=== PATIENT | male | born 1940 | race Caucasian/White ===

== ENCOUNTER 2016-09-02 15:32 | Inpatient (IN) | payer MEDICARE ==
[2016-09-02] VITALS (242 sets, daily range): BP systolic 120–181; BP diastolic 65–86; PULSE 79–80; TEMP 98.1; O2SAT 92–99
[~2016-09-02] VITALS: Ht 162.6 cm; Wt 79.6 kg
[~2016-09-02 15:32] MED LIST: ACCUPRIL10 MG PO; ACCUPRIL40 MG PO; ALDACTONE 25MG25 M1 PO; AMLOPIDINE PO; ASPI325T6 PO; ASPIRIN 81M81 MG/TA2 PO; ASPIRIN E.C. 8181 MG PO; CATAPRES 0.1MG0.1 MG PO; CENTRUM SILVER1 CTB PO; CENTRUM SILVER1 TA1 PO; CHROMIUM PICO200 MC1 PO; CINNAMON500 MG PO; COMBIRESP; CORAL CALCIUM 51 CAP PO; COREG 25MG25 MG/TAB PO; COREG12.5 MG PO; Cinnamon Bark PO; DEMADEX 20MG20 M1 PO; DIOVAN 160MG160 MG PO; DIOVAN80 M1 PO; EXFORGE HCT 101 TAB PO; FISH OIL1 IU PO; FLEXERIL 1010 MG/TAB PO; FLOMAX 0.40.4 MG/CAP PO; GLYBURIDE5 MG PO; GLYNASE 3MG3 MG/TAB PO; HYDROCHLOR50 MG PO; INSLANT SC; LANTUS100 U/ML; LANTUS100 U/ML SC; LORTAB 5/500 501 TAB; METOPROLOL SUCC25 MG PO; METOPROLOL25 MG PO; NITROSTAT0.4 MG/TAB SL; NOVLOG SC; NOVOLIN N100 U/ML SQ; NOVOLIN R100 U/ML SQ; NOVOLOG 100U100 U/ML SQ; NOVOLOG FLEX100 U/ML IV; OMEGA 31000 MG PO; OMEPRAZOLE20 MG PO; OSCAL 500MG/VI500 MG PO; PERCOCET 325 MG1 TA2 PO; PERCOCET 5/321 UDTAB PO; PLAQUENIL 200M200 MG PO; PRAVACHOL 20MG20 MG PO; PRAVACHOL 40MG40 MG PO; PREDNISONE1 MG PO; PREDNISONE20 MG PO; PRILOSEC 20MG20 MG PO; PRINIVIL20 MG PO; PROTANDIM; QUINAPRIL40 MG PO; SODIUM BICARB PO; TRAVATAN 2.5 M2.5 M1 OU; TRAVATAN Z 5 ML5 ML OU; TYLENOL 325MG325 MG PO; TYLENOL 500MG500 MG PO; TYLENOL ARTHRI650 M1 PO; TYLENOL PM EXTR1 TA1 PO; ULTRAM 50MG TAB50 MG PO; VIT C; VIT E; VITAMIN; VITAMIN C500 MG PO; VITAMIN E ACET100 ML; VITAMIN E200 I1 PO; XALATAN EYE DROPS OU; ZOCOR 80MG80 MG PO; ZOCOR80 MG PO; ZYLOPRIM 300MG300 MG PO; [UNRECOGNIZED DRUG - OTHER] PO
[2016-09-02 16:21] LABS: BASO # 0.1 (0.0-0.2); BASO % 1.1 % (0.0-2.0); EOS # 0.2 (0.0-0.7); EOS % 2.4 % (0-4.0); GRAN # 5.7 (1.4-6.5); GRAN % 65.4 % (42.2-75.2); HEMATOCRIT 39.5 % (42.0-52.0); HEMOGLOBIN 13.3 g/dl (13.5-18.0); LYMPH % 23.4 % (20.0-51.0); MEAN CELL VOLUME 88 fl (80.0-100.0); MEAN CORPUSCULAR HEMOGLOBIN 30 pg (27.0-31.0); MEAN CORPUSCULAR HGB CONC 34 g/dl (33.0-37.0); MEAN PLATELET VOLUME 9.8 fl (7.4-10.4); MONO # 0.6 (0.1-0.6); MONO % 7.2 % (1.7-9.3); PLATELET COUNT 261 K/mm3 (130-400); RED BLOOD COUNT 4.47 M/mm3 (4.20-5.60); REDCELL DISTRIBUTION WIDTH-CV 14.4 % (11.5-14.5); WHITE BLOOD COUNT 8.7 K/mm3 (4.8-10.8)
[2016-09-02 16:23] LABS: PROTHROMBIN TIME 11.5 SECONDS (9.7-12.8)
[2016-09-02 16:25] LABS: PARTIAL THROMBOPLASTIN TIME 27.6 SECONDS (26.0-37.0)
[2016-09-02 16:34] LABS: BILIRUBIN,TOTAL 0.7 mg/dL (0.0-1.0); CREATININE, serum 2.71 mg/dL (0.66-1.25); PHOSPHOROUS 2.9 mg/dL (2.5-4.5); POTASSIUM 3.5 mmol/L (3.4-5.0); TOTAL PROTEIN 7.6 gm/dL (6.4-8.2)
[2016-09-02 17:01] LABS: TROPONIN-I 0.086 ng/mL (0.000-0.034)
[2016-09-02 18:54] LABS: HYALINE CAST >12 /lpf; PH 5 (5-8); SQUAMOUS EPITHELIAL 0-2 /hpf; URINE APPEARANCE Clear; URINE BACTERIA Rare /hpf; URINE BILIRUBIN Negative (NEGATIVE); URINE BLOOD Negative (NEGATIVE); URINE COLOR Yellow; URINE GLUCOSE 1+ (NEGATIVE); URINE KETONE Negative (NEGATIVE); URINE RBC 0-2 /hpf; URINE UROBILINOGEN Negative (NEGATIVE); URINE WBC 0-2 /hpf
[2016-09-03] VITALS (873 sets, daily range): BP systolic 160–175; BP diastolic 64–100; PULSE 74–88; TEMP 89.1–98.7; O2SAT 76–100
[2016-09-03 05:40] LABS: BASO # 0.1 (0.0-0.2); BASO % 1.3 % (0.0-2.0); EOS # 0.2 (0.0-0.7); EOS % 2.9 % (0-4.0); GRAN # 4.2 (1.4-6.5); GRAN % 57.7 % (42.2-75.2); HEMATOCRIT 38.7 % (42.0-52.0); HEMOGLOBIN 13.2 g/dl (13.5-18.0); LYMPH # 2.2 (1.2-3.4); MEAN CELL VOLUME 87 fl (80.0-100.0); MEAN CORPUSCULAR HEMOGLOBIN 30 pg (27.0-31.0); MEAN CORPUSCULAR HGB CONC 34 g/dl (33.0-37.0); MEAN PLATELET VOLUME 9.5 fl (7.4-10.4); MONO # 0.6 (0.1-0.6); MONO % 7.8 % (1.7-9.3); PLATELET COUNT 229 K/mm3 (130-400); RED BLOOD COUNT 4.46 M/mm3 (4.20-5.60); REDCELL DISTRIBUTION WIDTH-CV 14.4 % (11.5-14.5); WHITE BLOOD COUNT 7.2 K/mm3 (4.8-10.8)
[2016-09-03 05:51] LABS: CALCIUM 9.8 mg/dL (8.4-10.2); CREATININE, serum 2.59 mg/dL (0.66-1.25); POTASSIUM 3.2 mmol/L (3.4-5.0)
[2016-09-04] VITALS (9 sets, daily range): BP systolic 101–202; BP diastolic 48–86; PULSE 83–100; TEMP 97.6–97.9
[2016-09-04] MEDS ORDERED: APRESOLINE 25MG25 MG PO (15:51)
[2016-09-04] MEDS ORDERED: ASPIRIN E.C. 8181 MG PO (15:52)
== END 2016-09-04 17:30 | disposition home or self-care (01) | DRG 69 ==
LOC: COL.ER 15:32 → ICU 17:57 → IMCU 09-03 09:27 → ICU 09-03 09:27 → MEDICAL 09-03 20:11
PROVIDERS: Emergency Medicine; Internal Medicine
DX: G45.9 Transient cerebral ischemic attack, unspecified (principal); I21.4 Non-ST elevation (NSTEMI) myocardial infarction; G81.91 Hemiplegia, unspecified affecting right dominant side; Z66 Do not resuscitate; I12.9 Hypertensive chronic kidney disease with stage 1 through stage 4 chronic kidney disease, or unspecified chronic kidney disease; E11.22 Type 2 diabetes mellitus with diabetic chronic kidney disease; E11.65 Type 2 diabetes mellitus with hyperglycemia; N18.9 Chronic kidney disease, unspecified; I25.10 Atherosclerotic heart disease of native coronary artery without angina pectoris; Z95.1 Presence of aortocoronary bypass graft; Z79.4 Long term (current) use of insulin; Z87.891 Personal history of nicotine dependence; E11.42 Type 2 diabetes mellitus with diabetic polyneuropathy; I08.0 Rheumatic disorders of both mitral and aortic valves
CPT/HCPCS: 99222-AI; 99233-AI; 99239; A9502; J0360; J1815; J2785

== ENCOUNTER 2016-12-31 15:32 | Inpatient (IN) | payer MEDICARE ==
[~2016-12-31] VITALS: Ht 162.6 cm; Wt 82.0 kg
[~2016-12-31 15:32] MED LIST changes: +APRESOLINE 25MG25 MG PO
[2016-12-31 16:00] LABS: INR 1.1 (0.8-3.0); PROTHROMBIN TIME 12.3 SECONDS (9.7-12.8)
[2016-12-31 16:01] LABS: BASO # 0.1 (0.0-0.2); BASO % 1.1 % (0.0-2.0); EOS # 0.2 (0.0-0.7); GRAN # 5.9 (1.4-6.5); GRAN % 70.1 % (42.2-75.2); HEMATOCRIT 38.6 % (42.0-52.0); LYMPH # 1.6 (1.2-3.4); LYMPH % 19.5 % (20.0-51.0); MEAN CELL VOLUME 86 fl (80.0-100.0); MEAN CORPUSCULAR HEMOGLOBIN 29 pg (27.0-31.0); MEAN CORPUSCULAR HGB CONC 34 g/dl (33.0-37.0); MEAN PLATELET VOLUME 10.1 fl (7.4-10.4); MONO # 0.6 (0.1-0.6); MONO % 6.9 % (1.7-9.3); PLATELET COUNT 291 K/mm3 (130-400); RED BLOOD COUNT 4.49 M/mm3 (4.20-5.60); REDCELL DISTRIBUTION WIDTH-CV 13.5 % (11.5-14.5); WHITE BLOOD COUNT 8.4 K/mm3 (4.8-10.8)
[2016-12-31 16:09] LABS: ADJUSTED CALCIUM 9.2 mg/dL (8.4-10.2); ALBUMIN 4.3 gm/dL (3.5-5.0); BILIRUBIN,TOTAL 0.8 mg/dL (0.0-1.0); CALCIUM 9.4 mg/dL (8.4-10.2); CREATININE, serum 3.57 mg/dL (0.66-1.25); POTASSIUM 3.7 mmol/L (3.4-5.0); TOTAL PROTEIN 7.5 gm/dL (6.4-8.2)
[2016-12-31 16:20] LABS: TROPONIN-I 0.025 ng/mL (0.000-0.034)
[2016-12-31] MEDS ORDERED: TYLENOL 325MG325 MG PO (17:04)
[2016-12-31] MEDS ORDERED: CELEXA10 MG PO (17:11)
[2016-12-31 20:07] VITALS: BP 170/67; PULSE 69; TEMP 98.2
[2016-12-31 20:21] VITALS: BP 170/67; PULSE 69; TEMP 98.2
[2016-12-31 20:22] VITALS: BP 167/79; BP 191/61
[2016-12-31 21:06] LABS: PH 5 (5-8); SQUAMOUS EPITHELIAL 0-2 /hpf; URINE APPEARANCE Clear; URINE BACTERIA None Seen /hpf; URINE BILIRUBIN Negative (NEGATIVE); URINE BLOOD Negative (NEGATIVE); URINE COLOR Straw; URINE GLUCOSE 2+ (NEGATIVE); URINE KETONE Negative (NEGATIVE); URINE RBC 0-2 /hpf; URINE UROBILINOGEN Negative (NEGATIVE); URINE WBC 0-2 /hpf
[2016-12-31 23:50] VITALS: BP 134/53; PULSE 65; TEMP 98.1
[2017-01-01] VITALS (10 sets, daily range): BP systolic 117–183; BP diastolic 51–71; PULSE 64–76; TEMP 98.3–98.7
[2017-01-01 08:46] LABS: BASO # 0.1 (0.0-0.2); BASO % 0.9 % (0.0-2.0); EOS # 0.2 (0.0-0.7); EOS % 2.9 % (0-4.0); GRAN # 5.1 (1.4-6.5); LYMPH # 1.8 (1.2-3.4); LYMPH % 23.3 % (20.0-51.0); MEAN CELL VOLUME 88 fl (80.0-100.0); MEAN CORPUSCULAR HGB CONC 33 g/dl (33.0-37.0); MEAN PLATELET VOLUME 10.2 fl (7.4-10.4); MONO # 0.6 (0.1-0.6); MONO % 7.6 % (1.7-9.3); PLATELET COUNT 239 K/mm3 (130-400); RED BLOOD COUNT 3.97 M/mm3 (4.20-5.60); REDCELL DISTRIBUTION WIDTH-CV 13.5 % (11.5-14.5); WHITE BLOOD COUNT 7.9 K/mm3 (4.8-10.8)
[2017-01-01 08:51] LABS: HEMATOCRIT 35.1 % (42.0-52.0); HEMOGLOBIN 11.6 g/dl (13.5-18.0); MEAN CORPUSCULAR HEMOGLOBIN 29 pg (27.0-31.0)
[2017-01-01 09:03] LABS: CALCIUM 8.7 mg/dL (8.4-10.2); CREATININE, serum 3.08 mg/dL (0.66-1.25); POTASSIUM 3.4 mmol/L (3.4-5.0)
[2017-01-02] VITALS (18 sets, daily range): BP systolic 107–231; BP diastolic 49–88; PULSE 58–83; TEMP 97.9–99
[2017-01-02 09:26] LABS: CALCIUM 8.7 mg/dL (8.4-10.2); CREATININE, serum 2.34 mg/dL (0.66-1.25); POTASSIUM 3.6 mmol/L (3.4-5.0)
[2017-01-03 05:02] VITALS: BP 195/65; PULSE 54; TEMP 98.6
[2017-01-03 07:17] VITALS: BP 179/78; PULSE 64; TEMP 98.5
[2017-01-03 11:39] VITALS: BP 161/57; PULSE 55; TEMP 97.7
[2017-01-03] MEDS ORDERED: HCTZ 25MG TAB25 MG PO (16:23)
[2017-01-03] MEDS ORDERED: TOPROL XL100 MG PO (16:23)
== END 2017-01-03 17:40 | disposition home or self-care (01) | DRG 683 ==
LOC: COL.ER 15:32 → MEDICAL 18:20
PROVIDERS: Emergency Medicine; Internal Medicine Cardiovascular Disease; Nurse Practitioner Family
DX: N17.9 Acute kidney failure, unspecified (principal); I13.0 Hypertensive heart and chronic kidney disease with heart failure and stage 1 through stage 4 chronic kidney disease, or unspecified chronic kidney disease; E87.1 Hypo-osmolality and hyponatremia; I50.32 Chronic diastolic (congestive) heart failure; R55 Syncope and collapse; I25.10 Atherosclerotic heart disease of native coronary artery without angina pectoris; Z95.1 Presence of aortocoronary bypass graft; E11.65 Type 2 diabetes mellitus with hyperglycemia; Z95.5 Presence of coronary angioplasty implant and graft; E11.22 Type 2 diabetes mellitus with diabetic chronic kidney disease; N18.9 Chronic kidney disease, unspecified; Z79.4 Long term (current) use of insulin; Z87.891 Personal history of nicotine dependence
CPT/HCPCS: 99223-AI; 99231-AI; 99238; J0360; J1815; J2405; J7030

== ENCOUNTER 2017-02-28 13:54 | Emergency (ER) | payer MEDICARE ==
[~2017-02-28] VITALS: Ht 162.6 cm; Wt 83.2 kg
[~2017-02-28 13:54] MED LIST changes: +CELEXA10 MG PO; +HCTZ 25MG TAB25 MG PO; +TOPROL XL100 MG PO
[2017-02-28 15:06] VITALS: TEMP 98.5
[2017-02-28 15:39] LABS: PH 5 (5-8); SQUAMOUS EPITHELIAL None Seen /hpf; URINE APPEARANCE Clear; URINE BACTERIA None Seen /hpf; URINE BILIRUBIN Negative (NEGATIVE); URINE BLOOD 1+ (NEGATIVE); URINE COLOR Straw; URINE GLUCOSE 3+ (NEGATIVE); URINE KETONE Negative (NEGATIVE); URINE RBC 0-2 /hpf; URINE UROBILINOGEN Negative (NEGATIVE); URINE WBC 0-2 /hpf
[2017-02-28 15:46] LABS: BASO # 0.1 (0.0-0.2); EOS # 0.1 (0.0-0.7); GRAN # 5.7 (1.4-6.5); GRAN % 73.5 % (42.2-75.2); HEMATOCRIT 38.9 % (42.0-52.0); HEMOGLOBIN 13.4 g/dl (13.5-18.0); LYMPH # 1.3 (1.2-3.4); LYMPH % 16.6 % (20.0-51.0); MEAN CELL VOLUME 84 fl (80.0-100.0); MEAN CORPUSCULAR HEMOGLOBIN 29 pg (27.0-31.0); MEAN CORPUSCULAR HGB CONC 34 g/dl (33.0-37.0); MONO # 0.6 (0.1-0.6); MONO % 7.5 % (1.7-9.3); PLATELET COUNT 295 K/mm3 (130-400); RED BLOOD COUNT 4.63 M/mm3 (4.20-5.60); REDCELL DISTRIBUTION WIDTH-CV 14.6 % (11.5-14.5); WHITE BLOOD COUNT 7.7 K/mm3 (4.8-10.8)
[2017-02-28 15:50] LABS: ADJUSTED CALCIUM 9.3 mg/dL (8.4-10.2); ALBUMIN 4.1 gm/dL (3.5-5.0); BILIRUBIN,TOTAL 0.7 mg/dL (0.0-1.0); CALCIUM 9.4 mg/dL (8.4-10.2); CREATININE, serum 2.15 mg/dL (0.66-1.25); POTASSIUM 3.8 mmol/L (3.4-5.0); TOTAL PROTEIN 7.2 gm/dL (6.4-8.2)
[2017-02-28 16:27] LABS: PARTIAL THROMBOPLASTIN TIME 27.5 SECONDS (26.0-37.0)
[2017-02-28 17:37] VITALS: BP 169/99; PULSE 87
[2017-02-28 19:29] LABS: TROPONIN-I 0.14 ng/mL (0.000-0.034)
== END 2017-02-28 17:46 | disposition short-term general hospital (02) ==
LOC: COL.ER 13:54
PROVIDERS: Emergency Medicine
DX: E11.65 Type 2 diabetes mellitus with hyperglycemia (principal); E11.22 Type 2 diabetes mellitus with diabetic chronic kidney disease; I12.9 Hypertensive chronic kidney disease with stage 1 through stage 4 chronic kidney disease, or unspecified chronic kidney disease; N18.9 Chronic kidney disease, unspecified; I25.10 Atherosclerotic heart disease of native coronary artery without angina pectoris; Z95.5 Presence of coronary angioplasty implant and graft; Z87.891 Personal history of nicotine dependence; Z79.4 Long term (current) use of insulin
CPT/HCPCS: J1815; J7030

== ENCOUNTER 2017-03-04 16:42 | Inpatient (IN) | payer MEDICARE ==
[~2017-03-04] VITALS: Ht 162.6 cm; Wt 83.9 kg
[2017-03-04 18:29] VITALS: BP 157/73; PULSE 63; TEMP 98.8
[2017-03-04 19:02] VITALS: BP 157/73; PULSE 63; TEMP 98.8
[2017-03-05 06:19] VITALS: BP 185/70; PULSE 62; TEMP 97.2
[2017-03-05 16:29] VITALS: BP 148/54; PULSE 59; TEMP 99.1
[2017-03-06 05:47] VITALS: BP 164/57; PULSE 65; TEMP 98.8
[2017-03-06 18:00] VITALS: BP 139/65; PULSE 76; TEMP 99.3
[2017-03-07 05:48] VITALS: BP 162/58; PULSE 62; TEMP 98.2
[2017-03-07 18:00] VITALS: BP 119/53; PULSE 71; TEMP 99.5
[2017-03-08 04:48] VITALS: BP 151/73; PULSE 66; TEMP 98.5
[2017-03-08 17:09] VITALS: BP 189/72; PULSE 69; TEMP 99.1
[2017-03-09 06:33] VITALS: BP 193/84; PULSE 59; TEMP 98.9
[2017-03-09 16:59] VITALS: BP 211/81; PULSE 70; TEMP 98.5
[2017-03-09 17:00] VITALS: BP 189/71; PULSE 70; TEMP 98.5
[2017-03-10 04:40] VITALS: BP 162/61; PULSE 66; TEMP 98.5
[2017-03-10 15:38] VITALS: BP 188/73; PULSE 64; TEMP 98.5
[2017-03-10 20:20] VITALS: BP 198/59; PULSE 69; TEMP 98.7
[2017-03-10 22:12] VITALS: BP 147/63; PULSE 71; TEMP 98.5
[2017-03-11 06:48] VITALS: BP 151/67; PULSE 73; TEMP 98.5
[2017-03-11 16:35] VITALS: BP 167/46; PULSE 61; TEMP 98.3
[2017-03-12 03:47] VITALS: BP 142/54; PULSE 79; TEMP 97.9
[2017-03-12 13:32] LABS: CREATININE, serum 2.16 mg/dL (0.66-1.25); POTASSIUM 3.7 mmol/L (3.4-5.0)
[2017-03-12 16:26] VITALS: BP 166/64; PULSE 64; TEMP 98.7
[2017-03-13 04:39] VITALS: BP 173/69; PULSE 57; TEMP 98.1
[2017-03-13 18:45] VITALS: BP 154/52; PULSE 77; TEMP 99.2
[2017-03-14 05:19] VITALS: BP 151/55; PULSE 69; TEMP 97.8
[2017-03-14 06:56] LABS: CALCIUM 9.1 mg/dL (8.4-10.2); CREATININE, serum 2.16 mg/dL (0.66-1.25); MAGNESIUM 2.2 mg/dL (1.6-2.3); POTASSIUM 3.9 mmol/L (3.4-5.0)
[2017-03-14 18:16] VITALS: BP 142/49; PULSE 68; TEMP 98.4
[2017-03-15 05:23] VITALS: BP 149/58; PULSE 61; TEMP 97.9
[2017-03-15 17:58] VITALS: BP 157/57; PULSE 77; TEMP 98.7
[2017-03-16 06:30] VITALS: BP 156/56; PULSE 80; TEMP 98.5
[2017-03-16 17:38] VITALS: BP 172/70; PULSE 56; TEMP 97.7
[2017-03-17 04:40] VITALS: BP 167/59; PULSE 58; TEMP 98.7
[2017-03-17 06:57] LABS: CALCIUM 9.2 mg/dL (8.4-10.2); CREATININE, serum 2.27 mg/dL (0.66-1.25); MAGNESIUM 2.1 mg/dL (1.6-2.3); POTASSIUM 3.7 mmol/L (3.4-5.0)
[2017-03-17 18:06] VITALS: BP 185/60; PULSE 70; TEMP 98.5
[2017-03-18 05:00] VITALS: BP 151/47; PULSE 53; TEMP 98.2
[2017-03-18] MEDS ORDERED: PRAVACHOL 40MG40 MG PO (08:49)
[2017-03-18] MEDS ORDERED: COREG 25MG25 MG/TAB PO (08:49)
[2017-03-18] MEDS ORDERED: CATAPRES 0.1MG0.1 MG PO (08:49)
[2017-03-18] MEDS ORDERED: COZAAR100 MG PO (08:50)
[2017-03-18] MEDS ORDERED: SEROQUEL 2525 MG/TAB PO ×2 (08:51)
[2017-03-18] MEDS ORDERED: DEMADEX 20MG20 M1 PO (08:52)
[2017-03-18] MEDS ORDERED: NOVLOG SQ (08:52)
[2017-03-18] MEDS ORDERED: INSULIN N (N100 U/ML SQ ×2 (08:53→08:54)
[2017-03-18] MEDS ORDERED: INSULIN R (N100 U/ML SQ ×3 (08:54→08:55)
[2017-03-18] MEDS ORDERED: VIMPAT50 MG PO (08:55)
[2017-03-18 11:42] VITALS: BP 151/47; PULSE 53; TEMP 98.2
== END 2017-03-18 13:00 | DRG 948 ==
PROVIDERS: Internal Medicine
DX: R53.81 Other malaise (principal); F05 Delirium due to known physiological condition; E87.1 Hypo-osmolality and hyponatremia; I16.0 Hypertensive urgency; I12.9 Hypertensive chronic kidney disease with stage 1 through stage 4 chronic kidney disease, or unspecified chronic kidney disease; N18.3 Chronic kidney disease, stage 3 (moderate); E11.21 Type 2 diabetes mellitus with diabetic nephropathy; I27.2 Other secondary pulmonary hypertension; E11.42 Type 2 diabetes mellitus with diabetic polyneuropathy; I25.10 Atherosclerotic heart disease of native coronary artery without angina pectoris; I08.0 Rheumatic disorders of both mitral and aortic valves; Z95.1 Presence of aortocoronary bypass graft; Z95.5 Presence of coronary angioplasty implant and graft; Z87.891 Personal history of nicotine dependence; Z79.4 Long term (current) use of insulin
CPT/HCPCS: 90791-AI; 99222-AI; 99232-AI; 99233-AI; 99239; J1650; J1815

== ENCOUNTER → 2017-03-21 | Outpatient (REF) ==
[~2017-03-21] MED LIST changes: +COZAAR100 MG PO; +INSULIN N (N100 U/ML SQ; +INSULIN R (N100 U/ML SQ; +NOVLOG SQ; +SEROQUEL 2525 MG/TAB PO; +VIMPAT50 MG PO
[2017-03-21 09:46] LABS: CREATININE, serum 2.09 mg/dL (0.66-1.25); POTASSIUM 4.6 mmol/L (3.4-5.0)
== END ==
LOC: ZLAB.STJ 09:18
PROVIDERS: Family Medicine
DX: Z01.89 Encounter for other specified special examinations (principal)

== ENCOUNTER → 2017-06-02 | Outpatient (CLI) | payer MEDICARE | LOC: MHCPAIN 14:26 | DX: G89.29 Other chronic pain (principal); M47.27 Other spondylosis with radiculopathy, lumbosacral region; M53.3 Sacrococcygeal disorders, not elsewhere classified; M96.1 Postlaminectomy syndrome, not elsewhere classified | CPT/HCPCS: G0463 ==

== ENCOUNTER 2017-08-11 07:03 | Inpatient (IN) | payer MEDICARE ==
[2017-08-11] VITALS (9 sets, daily range): BP systolic 123–206; BP diastolic 54–121; PULSE 57–72; TEMP 98–98.7
[~2017-08-11] VITALS: Ht 162.6 cm; Wt 76.4 kg
[~2017-08-11 07:03] MED LIST changes: +APRESOLINE50 MG PO; +CATAPRES0.2 MG PO; +DEPAKOTE 250MG250 MG PO; +HUMULIN N 10100 U/ML SQ; +NOVOLOG 100U100 U/M1 SQ
[2017-08-11] MEDS ORDERED: LANTUS100 U/ML SQ (07:59)
[2017-08-11] MEDS ORDERED: ZAROXOLYN 2.52.5 MG PO (08:01)
[2017-08-11] MEDS ORDERED: DEMADEX10 MG PO (08:06)
[2017-08-11] MEDS ORDERED: APRESOLINE50 MG PO (08:06)
[2017-08-11] MEDS ORDERED: NOVOLOG FLEX100 U/ML SQ (08:15)
[2017-08-11 09:37] LABS: BASO # 0.1 (0.0-0.2); BASO % 1.4 % (0.0-2.0); EOS % 0.5 % (0-4.0); GRAN # 2.9 (1.4-6.5); GRAN % 65.9 % (42.2-75.2); LYMPH # 0.7 (1.2-3.4); LYMPH % 16.6 % (20.0-51.0); MEAN CELL VOLUME 91 fl (80.0-100.0); MEAN CORPUSCULAR HGB CONC 32 g/dl (33.0-37.0); MEAN PLATELET VOLUME 9.6 fl (7.4-10.4); MONO # 0.7 (0.1-0.6); MONO % 15.4 % (1.7-9.3); PLATELET COUNT 174 K/mm3 (130-400); RED BLOOD COUNT 3.45 M/mm3 (4.20-5.60); WHITE BLOOD COUNT 4.4 K/mm3 (4.8-10.8)
[2017-08-11 09:41] LABS: HEMATOCRIT 31.5 % (42.0-52.0); HEMOGLOBIN 10.2 g/dl (13.5-18.0); MEAN CORPUSCULAR HEMOGLOBIN 30 pg (27.0-31.0)
[2017-08-11 09:42] LABS: INR 1.1 (0.8-3.0); PROTHROMBIN TIME 12.7 SECONDS (9.7-12.8)
[2017-08-11 09:46] LABS: ADJUSTED CALCIUM 9.4 mg/dL (8.4-10.2); ALBUMIN 4.1 gm/dL (3.5-5.0); BILIRUBIN,TOTAL 0.6 mg/dL (0.0-1.0); CALCIUM 9.5 mg/dL (8.4-10.2); CREATININE, serum 3.14 mg/dL (0.66-1.25); POTASSIUM 3.4 mmol/L (3.4-5.0); TOTAL PROTEIN 7.1 gm/dL (6.4-8.2)
[2017-08-12 00:22] LABS: HEPATITIS B CORE AB,TOTAL Negative (()); HEPATITIS C VIRUS ANTIBODY Negative (())
[2017-08-12 03:45] VITALS: BP 139/62; PULSE 70; TEMP 98.8
[2017-08-12 07:28] LABS: CALCIUM 9.5 mg/dL (8.4-10.2); CREATININE, serum 3.16 mg/dL (0.66-1.25); POTASSIUM 3.2 mmol/L (3.4-5.0)
[2017-08-12 12:03] VITALS: BP 149/58; PULSE 59; TEMP 98.6
[2017-08-12 16:49] VITALS: BP 148/66; PULSE 59; TEMP 98.8
[2017-08-12 19:27] VITALS: BP 166/75; PULSE 72; TEMP 98
[2017-08-12 23:51] VITALS: BP 188/85; PULSE 73; TEMP 98.3
[2017-08-13 04:04] VITALS: BP 143/69; PULSE 65; TEMP 98.5
[2017-08-13 06:13] LABS: ALBUMIN 4.1 gm/dL (3.5-5.0); CALCIUM 9.7 mg/dL (8.4-10.2); CREATININE, serum 3.13 mg/dL (0.66-1.25); POTASSIUM 3.4 mmol/L (3.4-5.0)
[2017-08-13 10:57] VITALS: BP 120/71; PULSE 67; TEMP 97.8
== END 2017-08-13 15:00 | DRG 641 ==
LOC: MEDICAL 07:03
PROVIDERS: Internal Medicine Nephrology
PROC: 05HM33Z Insertion of Infusion Device into Right Internal Jugular Vein, Percutaneous Approach (ICD-10-PCS; principal; 2017-08-11)
PROC: 5A1D70Z Performance of Urinary Filtration, Intermittent, Less than 6 Hours Per Day (ICD-10-PCS; 2017-08-12)
PROC: 5A1D70Z Performance of Urinary Filtration, Intermittent, Less than 6 Hours Per Day (ICD-10-PCS; 2017-08-13)
DX: E87.70 Fluid overload, unspecified (principal); N18.4 Chronic kidney disease, stage 4 (severe); N17.9 Acute kidney failure, unspecified; I13.10 Hypertensive heart and chronic kidney disease without heart failure, with stage 1 through stage 4 chronic kidney disease, or unspecified chronic kidney disease; E11.22 Type 2 diabetes mellitus with diabetic chronic kidney disease; E11.21 Type 2 diabetes mellitus with diabetic nephropathy; I16.0 Hypertensive urgency; F32.9 Major depressive disorder, single episode, unspecified; Z99.2 Dependence on renal dialysis; Z79.4 Long term (current) use of insulin; Z87.891 Personal history of nicotine dependence
CPT/HCPCS: J0690; J1644; J1815; J1940; J2250; J2916; J3010